=== PATIENT | female | born 1950 | race Asian ===

== ENCOUNTER → 2017-10-03 | Outpatient (REF) | payer OTHER ==
[~2017-10-03] MED LIST: ASPI81TA85 PO; LISINOP/HCTZ
[2017-10-03 16:18] LABS: ALBUMIN 3.9 GM/DL (3.2-5.2); ALBUMIN/GLOBULIN RATIO 0.93 (1.00-1.93); ALKALINE PHOSPHATASE 98 U/L (45-117); ALT/SGPT 20 U/L (12-78); ANION GAP 6 MEQ/L (8-16); AST/SGOT 11 U/L (7-37); BILIRUBIN,TOTAL 0.7 MG/DL (0.2-1.0); BLOOD UREA NITROGEN 13 MG/DL (7-18); CALCIUM LEVEL 9.1 MG/DL (8.8-10.2); CARBON DIOXIDE LEVEL 32 MEQ/L (21-32); CHLORIDE LEVEL 105 MEQ/L (98-107); CHOLESTEROL LEVEL 201 MG/DL (<200); CREATININE FOR GFR 0.71 MG/DL (0.55-1.02); GLOMERULAR FILTRATION RATE > 60.0 (>45); GLUCOSE, FASTING 79 MG/DL (80-110); POTASSIUM SERUM 4.1 MEQ/L (3.5-5.1); SODIUM LEVEL 143 MEQ/L (136-145); TOTAL PROTEIN 8.1 GM/DL (6.4-8.2); TRIGLYCERIDES LEVEL 136 MG/DL (<150)
== END ==
LOC: M SFHCPLAZ 11:27
PROVIDERS: ATTEND Nurse Practitioner Family
DX: I10 Essential (primary) hypertension (principal); E55.9 Vitamin D deficiency, unspecified

== ENCOUNTER 2017-10-09 10:44 | Emergency (ER) | payer OTHER ==
[~2017-10-09] VITALS: Ht 149.9 cm; Wt 77.3 kg
[2017-10-09 10:44] VITALS: BP 141/79
[2017-10-09] MEDS ORDERED: ASPI81TA85 PO (10:53)
[2017-10-09] MEDS ORDERED: LISINOP/HCTZ (10:53)
--- NOTE | 2017-10-09 19:26 | ECGEPIP ---
Stationary ECG Study [facility] - ED Test Date: 2017-10-09 Pat Name: STANLYE JAMES Department: Room: - Gender: F Eye Physician: virginie : 1950 Requested By: Tremayne Edgar Order Number: [id number] Reading MD: Diana Monk Measurements Intervals [place] Rate: 77 P: 40 IA: 178 QRS: 5 QRSD: 81 T: 72 QT: 386 QTc: 439 Interpretive Statements SINUS RHYTHM WITH FREQUENT VENTRICULAR PREMATURE COMPLEXES MODERATE T-WAVE ABNORMALITY, CONSIDER ISCHEMIA NO PRIOR FOR COMPARISON Electronically Signed On 10-09-2017 19:26:10 EST by Diana Monk
== END 2017-10-09 13:52 | disposition home or self-care (01) ==
LOC: M ED 10:44
DX: T46.4X5A Adverse effect of angiotensin-converting-enzyme inhibitors, initial encounter (principal); Y92.9 Unspecified place or not applicable; Y93.9 Activity, unspecified; R94.31 Abnormal electrocardiogram [ECG] [EKG]; I10 Essential (primary) hypertension; Z79.82 Long term (current) use of aspirin; Z88.6 Allergy status to analgesic agent

== ENCOUNTER → 2018-02-12 | Outpatient (REF) | payer MEDICARE ==
[2018-02-12 11:40] LABS: ANION GAP 8 MEQ/L (8-16); BLOOD UREA NITROGEN 20 MG/DL (7-18); CARBON DIOXIDE LEVEL 26 MEQ/L (21-32); CHLORIDE LEVEL 111 MEQ/L (98-107); CREATININE FOR GFR 0.99 MG/DL (0.55-1.30); GLOMERULAR FILTRATION RATE 59.9 (>45); GLUCOSE, FASTING 111 MG/DL (70-100); POTASSIUM SERUM 4.7 MEQ/L (3.5-5.1); SODIUM LEVEL 145 MEQ/L (136-145)
[2018-02-12 11:55] LABS: TOTAL 25(OH) VITAMIN D 66.3 NG/ML (30.0-100.0)
== END ==
LOC: M SFHCPLAZ 08:46
DX: I10 Essential (primary) hypertension (principal); E55.9 Vitamin D deficiency, unspecified
CPT/HCPCS: 82306

== ENCOUNTER → 2018-03-15 | Outpatient (REF) | payer MEDICARE ==
[2018-03-17 08:06] LABS: RUBEOLA IgG ANTIBODY 76.5 AU/mL (Immune >29.9)
== END ==
LOC: M SFHCPLAZ 15:12
DX: I10 Essential (primary) hypertension (principal); Z91.89 Other specified personal risk factors, not elsewhere classified
CPT/HCPCS: 86765

== ENCOUNTER → 2018-08-14 | Outpatient (REF) | payer MEDICARE ==
[2018-08-14 12:03] LABS: ESTIMATED AVERAGE GLUCOSE 117 MG/DL (60-110); HEMOGLOBIN A1c 5.7 %
[2018-08-14 12:30] LABS: ALBUMIN 3.9 GM/DL (3.2-5.2); ALBUMIN/GLOBULIN RATIO 1.03 (1.00-1.93); ALKALINE PHOSPHATASE 78 U/L (45-117); ALT/SGPT 20 U/L (12-78); ANION GAP 9 MEQ/L (8-16); AST/SGOT 12 U/L (7-37); BILIRUBIN,TOTAL 0.5 MG/DL (0.2-1.0); BLOOD UREA NITROGEN 21 MG/DL (7-18); CALCIUM LEVEL 9.1 MG/DL (8.8-10.2); CARBON DIOXIDE LEVEL 26 MEQ/L (21-32); CHLORIDE LEVEL 106 MEQ/L (98-107); CHOLESTEROL LEVEL 209 MG/DL (<200); CHOLESTEROL RISK RATIO 4.543 (<5); CREATININE FOR GFR 0.94 MG/DL (0.55-1.30); GLOMERULAR FILTRATION RATE > 60.0 (>45); GLUCOSE, FASTING 98 MG/DL (70-100); HDL CHOLESTEROL 46 MG/DL (>40); LDL CHOLESTEROL 118 MG/DL (<100); NON-HDL-C 163 MG/DL; SODIUM LEVEL 141 MEQ/L (136-145); TOTAL 25(OH) VITAMIN D 40.9 NG/ML (30.0-100.0); TOTAL PROTEIN 7.7 GM/DL (6.4-8.2); TRIGLYCERIDES LEVEL 227 MG/DL (<150)
== END ==
LOC: M SFHCPLAZ 08:56
DX: I10 Essential (primary) hypertension (principal); R73.01 Impaired fasting glucose; E78.00 Pure hypercholesterolemia, unspecified; E55.9 Vitamin D deficiency, unspecified; Z79.899 Other long term (current) drug therapy
CPT/HCPCS: 80053

== ENCOUNTER → 2018-09-04 | Outpatient (CLI) | payer MEDICARE | LOC: M WHC 08:19 | DX: R92.8 Other abnormal and inconclusive findings on diagnostic imaging of breast (principal) | CPT/HCPCS: 77067 ==

== ENCOUNTER → 2018-09-10 | Outpatient (CLI) | payer MEDICARE | LOC: M RAD 12:40 | DX: R92.0 Mammographic microcalcification found on diagnostic imaging of breast (principal) | CPT/HCPCS: 77065 ==

== ENCOUNTER → 2018-12-21 | Outpatient (REF) | payer MEDICARE ==
[2018-12-21 12:15] LABS: BILIRUBIN,TOTAL 0.6 MG/DL (0.2-1.0); CALCIUM LEVEL 9.1 MG/DL (8.8-10.2); CHOLESTEROL RISK RATIO 2.745 (<5); CREATININE FOR GFR 1.1 MG/DL (0.55-1.30); GLOMERULAR FILTRATION RATE 52.9 (>45); POTASSIUM SERUM 4.3 MEQ/L (3.5-5.1); TOTAL PROTEIN 7.9 GM/DL (6.4-8.2)
== END ==
LOC: M SFHCPLAZ 08:44
PROVIDERS: ATTEND Nurse Practitioner Family
DX: E78.00 Pure hypercholesterolemia, unspecified (principal)

== ENCOUNTER → 2018-12-21 | Outpatient (REF) | payer MEDICARE | LOC: CANPREREF → M LABDRAWP 08:49 | PROVIDERS: ATTEND Nurse Practitioner Family | DX: Z53.9 Procedure and treatment not carried out, unspecified reason (principal) ==

== ENCOUNTER 2019-01-25 09:34 | Outpatient (RCR) | payer MEDICARE | END 2019-01-27 | LOC: M PT 09:34 | PROVIDERS: ATTEND Nurse Practitioner Family | DX: Z51.89 Encounter for other specified aftercare (principal); M25.512 Pain in left shoulder ==

== ENCOUNTER 2019-01-31 07:52 | Outpatient (RCR) | payer MEDICARE | END 2019-02-26 | LOC: M PT 07:52 | PROVIDERS: ATTEND Nurse Practitioner Family | DX: M25.512 Pain in left shoulder (principal) ==

== ENCOUNTER → 2019-04-12 | Outpatient (CLI) | payer MEDICARE ==
--- NOTE | 2019-04-12 11:52 | REP ---
DIGITAL DIAGNOSTIC UNILATERAL RIGHT BREAST MAMMOGRAPHY WITH CAD: HISTORY: 6-month followup for microcalcifications. Comparison mammography from September 10, 2018 was BIRADS category 4 suspicious breast imaging for microcalcifications. Stereotactic needle biopsy had been recommended. Comparison is also made with September 04, 2018, May 31, 2016, and July 22, 2014 prior mammography. MAMMOGRAPHIC FINDINGS: Today's magnified focal spot compression CC, true ML, and MLO views of the right breast demonstrate the previously described microcalcific grouping unchanged in the 7-month interval since the September 10, 2018 prior images. This lack of progression over 7 months does not rule out malignancy. The calcifications have progressed since 2016 and are new when compared to the 2013 prior study. No new mammographic opacity is seen. No architectural distortion or mass lesion is seen. IMPRESSION: BIRADS 4: BI-RADS/ACR category 4 mammogram. Suspicious Abnormality - biopsy should be considered. Previously noted tight grouping of microcalcifications in the inferior right breast at approximately 6-o'clock is unchanged over the 7-month interval from the most recent prior mammogram. There is progression since more remote prior mammography. BIRADS category is still felt to be best assigned as category 4 suspicious breast imaging. This mammogram was interpreted with the aid of an FDA-approved computer-aided detection system. The patient states that she/he has not had a clinical breast exam in over a year. August 2018 The patient letter being requested is M4 This patient's estimated Tyrer-Cuzick lifetime risk assessment for the breast cancer is 6.0 %. Electronically Signed by Torrey Trent MD 04/12/2019 03:09 P
== END ==
LOC: M RAD 10:05
PROVIDERS: ATTEND Surgery
DX: R92.0 Mammographic microcalcification found on diagnostic imaging of breast (principal)

== ENCOUNTER → 2019-06-20 | Outpatient (REF) | payer MEDICARE ==
[2019-06-20 10:27] LABS: ALBUMIN 3.9 GM/DL (3.2-5.2); BILIRUBIN,TOTAL 0.6 MG/DL (0.2-1.0); CALCIUM LEVEL 9.8 MG/DL (8.8-10.2); CHOLESTEROL RISK RATIO 2.8 (<5); CREATININE FOR GFR 1.08 MG/DL (0.55-1.30); FREE T4 1.53 NG/DL (0.76-1.46); POTASSIUM SERUM 4.5 MEQ/L (3.5-5.1); THYROID STIMULATING HORMONE 1.48 uIU/ML (0.358-3.740); TOTAL PROTEIN 7.7 GM/DL (6.4-8.2)
[2019-06-20 10:46] LABS: HEMOGLOBIN A1c 6.4 %
[2019-06-20 12:20] LABS: TOTAL 25(OH) VITAMIN D 42.6 NG/ML (30.0-100.0)
== END ==
LOC: M SFHCPLAZ 07:56
PROVIDERS: ATTEND Nurse Practitioner Family
DX: E78.00 Pure hypercholesterolemia, unspecified (principal); R73.01 Impaired fasting glucose; E55.9 Vitamin D deficiency, unspecified; Z79.82 Long term (current) use of aspirin

== ENCOUNTER → 2019-11-18 | Outpatient (CLI) | payer MEDICARE ==
--- NOTE | 2019-11-18 15:49 | REPMRS ---
Patient History The patient states she had a clinical breast exam in February 2019.No known family history of cancer. Digital Woman Screen Mammo: November 18, 2019 - Exam #: [id number] Bilateral CC and MLO view(s) were taken. Technologist: Melany Donahue, Technologist Prior study comparison: April 12, 2019, right breast digital mammo diagnostic unilateral, performed at [facility]. September 04, 2018, bilateral digital woman screen mammo performed at [facility]. May 31, 2016, digital woman screen mammo performed at [facility]. July 22, 2014, digital woman screen mammo performed at [facility]. FINDINGS: There are scattered fibroglandular densities. The previously described grouping of microcalcifications in the inferior medial aspect of the right breast is again seen unchanged from most recent prior study of September 10, 2018 and April 12, 2019. These have been previously described as suspicious and merit diagnostic mammography with magnified focal spot images for further evaluation. There has been no other change in the appearance of the mammogram from the prior studies. There is a mild amount of scattered fibroglandular density which is fairly symmetric. There is no interval development of dominant mass, architectural distortion, or grouped microcalcification suggestive of malignancy. 3-D tomosynthesis shows no additional findings. Assessment: BI-RADS/ACR category 0 mammogram, Incomplete: Need additional imaging evaluation and/or prior mammograms for comparison. Recommendation Special view mammogram of the right breast. This patient's Lifetime Breast Cancer Risk is estimated at 5.7 %. This mammogram was interpreted with the aid of an FDA-approved computer-aided dectection system. Electronically Signed By: Taqueria Trent MD 11/18/19 [id number]
== END ==
LOC: M WHC 11:29
PROVIDERS: ATTEND Nurse Practitioner Family
DX: Z12.31 Encounter for screening mammogram for malignant neoplasm of breast (principal)

== ENCOUNTER → 2019-11-26 | Outpatient (CLI) | payer MEDICARE ==
--- NOTE | 2019-11-26 09:44 | REP ---
DIAGNOSTIC MAMMOGRAM RIGHT BREAST: Magnification views right breast performed in the MLO, ML and CC projections and correlated with several prior exams. Once again, there is a cluster of multiple pleomorphic microcalcifications in the 6-o'clock region of the right breast. There are at least two new microcalcifications when compared to prior diagnostic study of 09/10/2018. Again the findings are suspicious and I would recommend stereotactic biopsy. IMPRESSION: BIRADS 4: BI-RADS/ACR category 4 mammogram. Suspicious Abnormality - biopsy should be considered. ACR 4 suspicious. Multiple pleomorphic clustered microcalcifications at 6-o'clock right breast. There are at least two new microcalcifications seen in this cluster compared to the initial diagnostic images of 09/10/2018. Stereotactic biopsy is recommended. Patient letter requested is M4. Electronically Signed by Iker Pak MD 11/27/2019 01:26 P
== END ==
LOC: M RAD 08:49
PROVIDERS: ATTEND Nurse Practitioner Family
DX: R92.2 Inconclusive mammogram (principal)

== ENCOUNTER → 2019-12-03 | Outpatient (CLI) | payer MEDICARE ==
--- NOTE | 2019-12-03 17:19 | REP ---
Focused right breast sonography: History: Right breast mass at 3 o'clock, 1 cm from the nipple. Calcification of right breast. Comparison mammography November 26, 2019. Sonographic findings: Right breast is scanned at approximately 3 o'clock in the area of the palpable lump. Heterogeneous fibroglandular background echotexture is seen sonographically. No cyst or mass is observed. No acoustic shadowing or architectural distortion is seen. Impression: BIRADS category 1 negative focused right breast sonographic findings.
== END ==
LOC: M WHC 12:42
PROVIDERS: ATTEND Surgery
DX: R92.1 Mammographic calcification found on diagnostic imaging of breast (principal)

== ENCOUNTER → 2019-12-11 | Outpatient (CLI) | payer MEDICARE ==
[~2019-12-11] MED LIST changes: +AMLO25TA PO; +ATOR1TAB19 PO; +METO1TAB7 PO; +VITA200028 PO
[2019-12-11 16:12] VITALS: BP 114/62
--- NOTE | 2019-12-11 18:12 | ROOPDOC ---
[facility] Report Of Operation Report of Operation DATE OF PROCEDURE: 12/11/19 PREPROCEDURE DIAGNOSES: right breast suspicious calcifications POSTPROCEDURE DIAGNOSES: Right breast suspicious calcifications PROCEDURE: Stereotactic biopsy of the right breast suspicious calcifications and clip placement SURGEON: Arianna Luz D.O. UPSTAIRS MAID: ANESTHESIA: Local anesthetic 6 mL ESTIMATED BLOOD LOSS: Approximately [1 mL. COMPLICATIONS: None REMARKS: Postbiopsy clip seen in the good location on post procedure mammogram of the right breast. Suspicious calcifications are no longer seen on mammogram of the right breast postprocedure. DESCRIPTION OF PROCEDURE: Lidocaine 1% LOT [id number] Expiration 02/2023 Sodium Bicarbonate 8.4% LOT [id number] Expiration 06/2021 Hydromark clip LOT [id number] Expiration September 2021 REF [id number] t[place]au m shaped 1 (closed Spring) Bx device: Stereotactic Mammotome Revolve Dual Vacuum- assisted Biopsy System 10 G LOT [id number] Expiration September 2022 REF [id number] Informed consent was obtained in the preop area. The most common risk and possible complications including bleeding, hematoma, bruising, infection, injury to surrounding structures were explained to the patient and she expressed understanding. Patient was taken to the procedure room and placed prone on the [facility] Biopsy table with the right breast hanging through the table aperture. Right breast was placed into Cranio-Caudal compression with the planned inferior approach for the biopsy. Engineering Psychologist arsalan images were taken. Suspicious calcifications were identified on the arsalan images and target was set. At this time, since we were able to confirm visibility of the suspicious calcifications and patient tolerated prone positioning allowing to proceed with the biopsy, appropriate time out was done stating patients name, date of , and the procedure to be performed. The right breast in CC compression was prepped in the usual fashion. Plain Lidocaine 1% and 8.4% sodium bicarbonate 10:1 mix was used to numb the skin, the biopsy site and tissues along the anticipated biopsy tract. Small skin incision was made with blade number 11. Mammotome 10 G stereotactic breast biopsy device was inserted through the incision and advanced to the previously set coordinates marking the target lesion. Pre-fire imaging was taken to assure appropriate positioning. At this time, Mammotome 10 G breast biopsy device was fired and seven vacuum assisted biopsies were collected. The biopsy samples were investigated with [employer] system and calcifications were observed. Those images were captured and sent to PACS. Biopsy samples were then placed in the formaldehyde, marked with patients name and right breast biopsy site, and sent to pathology for evaluation. Hydromark clip was placed into the Mammotome biopsy device channel and deployed. Post-deployment imaging was done to assure appropriate clip deployment. Clip was noted in the right breast. At this point, paddle CC compression of the right breast was released and manual pressure was held to decrease harmonic effect and to assure hemostasis. No bleeding was noted upon removal of the pressure. Patient was slowly repositioned and placed into sitting position, and then assisted off the table. Post-biopsy mammogram of the right breast was obtained and showed clip in expected position. Postprocedural dressing was placed. Patient tolerated procedure well and was taken to the recovery unit in stable condition. Discharge instructions were discussed with the patient and she expressed understanding. ARIANNA LUZ DO Dec 11, 2019 18:11
--- NOTE | 2019-12-12 08:30 | REP ---
Digital diagnostic unilateral right breast mammography with CAD: Two views: History: Clip placement mammogram. The patient status post ectatic needle biopsy for microcalcifications. Comparison mammography November 26, 2019. Findings: Mediolateral oblique and craniocaudad views of the right breast demonstrate the needle biopsy marker clip in good position. The previously noted micro calcific grouping has been removed. Impression: Marker clip in good position. Microcalcifications no longer visible. Electronically Signed by Torrey Trent MD 12/12/2019 10:13 A
--- NOTE | 2019-12-12 09:04 | REP ---
Specimen radiography right breast: Single view. History: Stereotactic needle biopsy for microcalcifications. Comparison mammography November 26, 2019. Findings: Specimen radiography demonstrates microcalcifications from the target cluster in two of the removed specimens.
== END ==
LOC: M WHCPRO 13:35
PROVIDERS: ATTEND Surgery
DX: N64.1 Fat necrosis of breast (principal)

== ENCOUNTER → 2020-03-27 | Outpatient (REF) | payer MEDICARE ==
[2020-03-27 17:47] LABS: CREATININE FOR GFR 1.25 MG/DL (0.55-1.30); GLOMERULAR FILTRATION RATE 45.5 (>45); POTASSIUM SERUM 5.1 MEQ/L (3.5-5.1); URIC ACID 8.1 MG/DL (2.6-6.0)
[2020-03-27 18:12] LABS: MALB URINE SIEMENS 18.2 MG/L; MAU/CREAT RATIO 6.3 MCG/MG (0.0-30.0)
[2020-03-27 18:31] LABS: HEMOGLOBIN A1c 6.1 %
== END ==
LOC: M SFHCPLAZ 14:07
PROVIDERS: ATTEND Nurse Practitioner Family
DX: R73.03 Prediabetes (principal); I10 Essential (primary) hypertension; M10.9 Gout, unspecified

== ENCOUNTER → 2020-04-14 | Outpatient (REF) | payer MEDICARE ==
[2020-04-14 12:53] LABS: CALCIUM LEVEL 8.9 MG/DL (8.8-10.2); CREATININE FOR GFR 1.21 MG/DL (0.55-1.30); GLOMERULAR FILTRATION RATE 47.2 (>45); POTASSIUM SERUM 4.7 MEQ/L (3.5-5.1)
== END ==
LOC: M SFHCPLAZ 09:15
PROVIDERS: ATTEND Nurse Practitioner Family
DX: N18.3 Chronic kidney disease, stage 3 (moderate) (principal)
CPT/HCPCS: 36415; 80048; G0463

== ENCOUNTER 2020-06-18 13:07 | Emergency (ER) | payer MEDICARE ==
[~2020-06-18] VITALS: Ht 149.9 cm; Wt 66.1 kg
[~2020-06-18 13:07] MED LIST changes: -ASPI81TA85 PO; +ASPI81TA86 PO
[2020-06-18] MEDS ORDERED: SIMETHICONE 80 MG CHEW TAB PO STA (14:08)
[2020-06-18 14:21] LABS: BASO % 0.3 % (0.0-1.0); EOS # 0.1 10^3/uL (0.0-0.5); EOS % 0.9 % (0.0-3.0); HEMATOCRIT 42.3 % (36.0-47.0); HEMOGLOBIN 14.4 g/dl (12.0-15.5); LYMPH # 2.2 10^3/uL (1.5-5.0); LYMPH % 21.8 % (24.0-44.0); MEAN CORPUSCULAR HEMOGLOBIN 31.2 pg (27.0-33.0); MEAN CORPUSCULAR VOLUME 91.8 fl (80.0-96.0); MONO # 0.5 10^3/uL (0.0-0.8); MONO % 5.2 % (0.0-5.0); NEUTROPHILS # 7.2 10^3/uL (1.5-8.5); NEUTROPHILS % 71.4 % (36.0-66.0); PLATELET COUNT, AUTOMATED 323 10^3/uL (150-450); RED BLOOD COUNT 4.61 10^6/uL (4.00-5.40)
[2020-06-18 14:47] LABS: ALBUMIN 4.2 GM/DL (3.2-5.2); ALT/SGPT 19 U/L (12-78); BILIRUBIN,DIRECT 0.2 MG/DL (0.0-0.2); BILIRUBIN,TOTAL 0.4 MG/DL (0.2-1.0); BLOOD UREA NITROGEN 19 MG/DL (7-18); CALCIUM LEVEL 9.5 MG/DL (8.8-10.2); CARBON DIOXIDE LEVEL 28 MEQ/L (21-32); CHLORIDE LEVEL 103 MEQ/L (98-107); CK-MB VALUE MASS < 1.0 NG/ML (<3.6); CPK CREATINE PHOSPHOKINASE 94 U/L (26-192); CREATININE FOR GFR 1.67 MG/DL (0.55-1.30); GLOMERULAR FILTRATION RATE 32.6 (>45); GLUCOSE, FASTING 99 MG/DL (70-100); LIPASE 352 U/L (73-393); MB/CK RELATIVE INDEX 1.06 (< OR =4); SODIUM LEVEL 136 MEQ/L (136-145); TOTAL PROTEIN 7.9 GM/DL (6.4-8.2); TROPONIN I < 0.02 NG/ML (< 0.10)
[2020-06-18] MEDS ORDERED: COLA100C5 PO (15:41)
[2020-06-18] MEDS ORDERED: SIME40TA PO (15:42)
[2020-06-18 15:53] VITALS: BP 122/75
--- NOTE | 2020-07-08 14:23 | ECGEPIP ---
[facility] - ED Test Date: 2020-06-18 Pat Name: STANLEY JAMES Department: Room: - Gender: Female Manager Community Development: yuval : 1950 Requested By: Diana Monk Order Number: [id number] Reading MD: Diana Monk Measurements Intervals [place] Rate: 61 P: 29 MD: 171 QRS: 12 QRSD: 85 T: 12 QT: 397 QTc: 403 Interpretive Statements SINUS RHYTHM NONSPECIFIC T-WAVE ABNORMALITY BORDERLINE ECG SEE SCANNED DOWNTIME REPORT
== END 2020-06-18 16:05 | disposition home or self-care (01) ==
LOC: M ED 13:07
DX: K59.00 Constipation, unspecified (principal); R14.0 Abdominal distension (gaseous); R79.89 Other specified abnormal findings of blood chemistry; I10 Essential (primary) hypertension; E78.5 Hyperlipidemia, unspecified; R51 Headache; Z88.6 Allergy status to analgesic agent; Z88.8 Allergy status to other drugs, medicaments and biological substances; Z79.899 Other long term (current) drug therapy; Z79.82 Long term (current) use of aspirin

== ENCOUNTER → 2020-06-25 | Outpatient (CLI) | payer MEDICARE ==
[~2020-06-25] MED LIST changes: +COLA100C5 PO; +SIME40TA PO
[2020-06-25 12:10] LABS: CREATININE FOR GFR 1.08 MG/DL (0.55-1.30); GLOMERULAR FILTRATION RATE 53.9 (>45)
== END ==
LOC: M LAB 07:11
PROVIDERS: ATTEND Physician Assistant
DX: K59.00 Constipation, unspecified (principal); R14.0 Abdominal distension (gaseous)

== ENCOUNTER → 2020-06-30 | Outpatient (CLI) | payer MEDICARE ==
[2020-06-30 14:05] LABS: CREATININE FOR GFR 1.08 MG/DL (0.55-1.30); GLOMERULAR FILTRATION RATE 53.9 (>45); POTASSIUM SERUM 5.2 MEQ/L (3.5-5.1)
[2020-06-30 14:06] LABS: ALBUMIN 4.2 GM/DL (3.2-5.2); BILIRUBIN,TOTAL 0.6 MG/DL (0.2-1.0); CALCIUM LEVEL 9.7 MG/DL (8.8-10.2); CHOLESTEROL RISK RATIO 2.588 (<5); TOTAL PROTEIN 7.7 GM/DL (6.4-8.2); URIC ACID 6.6 MG/DL (2.6-6.0)
[2020-06-30 14:14] LABS: MALB URINE SIEMENS 41.8 MG/L; MAU/CREAT RATIO 26.1 MCG/MG (0.0-30.0)
[2020-06-30 15:20] LABS: HEMOGLOBIN A1c 5.7 %
== END ==
LOC: M PLALAB 07:55
PROVIDERS: ATTEND Nurse Practitioner Family
DX: I12.9 Hypertensive chronic kidney disease with stage 1 through stage 4 chronic kidney disease, or unspecified chronic kidney disease (principal); R73.03 Prediabetes; E78.00 Pure hypercholesterolemia, unspecified; E79.0 Hyperuricemia without signs of inflammatory arthritis and tophaceous disease; N18.3 Chronic kidney disease, stage 3 (moderate)

== ENCOUNTER → 2020-07-10 | Outpatient (CLI) | payer MEDICARE ==
[2020-07-10 14:55] LABS: CALCIUM LEVEL 9.3 MG/DL (8.8-10.2); CREATININE FOR GFR 1.05 MG/DL (0.55-1.30); GLOMERULAR FILTRATION RATE 55.7 (>45); POTASSIUM SERUM 4.3 MEQ/L (3.5-5.1)
== END ==
LOC: M PLALAB 12:12
PROVIDERS: ATTEND Family Medicine
DX: I10 Essential (primary) hypertension (principal)

== ENCOUNTER → 2020-11-03 | Outpatient (CLI) | payer MEDICARE ==
--- NOTE | 2020-11-03 13:03 | REPMRS ---
Patient History The patient states she had a clinical breast exam in 10/2020 No known family history of cancer. Benign stereotatic loc for ea lesion of the right breast, December 11, 2019. 3D TOMOSYNTHESIS WAS PERFORMED. The Uday Hart lifetime risk for breast cancer is 5.7%. Volpara breast density b. Digital Woman Screen Mammo: November 03, 2020 - Exam #: [id number] Bilateral CC and MLO view(s) were taken. Technologist: Yisel Diaz, Technologist Prior study comparison: December 11, 2019, right breast diagnostic unilateral mammo performed at [facility]. November 26, 2019, right breast digital mammo diagnostic unilateral, performed at [facility]. FINDINGS: There are scattered fibroglandular densities. There has been no change in the appearance of the mammogram from the prior studies. There is a mild amount of residual fibroglandular tissue which is fairly symmetric. There is no interval development of dominant mass, architectural distortion, or clustered microcalcification suggestive of malignancy. Assessment: BI-RADS/ACR category 1 mammogram. Negative Mammogram. Recommendation Routine screening mammogram in 1 year (for women over age 40). This mammogram was interpreted with the aid of an FDA-approved computer-aided dectection system. Electronically Signed By: Iker Pak MD 11/03/20 [id number]
== END ==
LOC: M WHC 12:21
PROVIDERS: ATTEND Nurse Practitioner Family
DX: Z12.31 Encounter for screening mammogram for malignant neoplasm of breast (principal); Z86.018 Personal history of other benign neoplasm

== ENCOUNTER → 2020-12-31 | Outpatient (CLI) | payer MEDICARE ==
[~2020-12-31] MED LIST changes: -SIME40TA PO; +SIME80CH6 PO
[2020-12-31 08:49] LABS: BILIRUBIN,TOTAL 0.6 MG/DL (0.2-1.0); CALCIUM LEVEL 9.3 MG/DL (8.8-10.2); CHOLESTEROL RISK RATIO 3.758 (<5); CREATININE FOR GFR 1.19 MG/DL (0.55-1.30); POTASSIUM SERUM 4.5 MEQ/L (3.5-5.1); TOTAL PROTEIN 7.7 GM/DL (6.4-8.2)
[2020-12-31 11:14] LABS: TOTAL 25(OH) VITAMIN D 41.3 NG/ML (30.0-100.0)
== END ==
LOC: M LAB 07:52
PROVIDERS: ATTEND Nurse Practitioner Family
DX: E78.00 Pure hypercholesterolemia, unspecified (principal); E55.9 Vitamin D deficiency, unspecified; I10 Essential (primary) hypertension; Z79.899 Other long term (current) drug therapy

== ENCOUNTER 2021-02-14 17:33 | Emergency (ER) | payer MEDICARE ==
[~2021-02-14] VITALS: Ht 149.9 cm; Wt 61.4 kg
[2021-02-14 17:38] VITALS: BP 147/76
--- NOTE | 2021-02-14 20:04 | REPVR ---
PROCEDURE INFORMATION: Exam: CT Cervical Spine Without Contrast Exam date and time: 02/14/2021 7:27 PM Age: 70 years old Clinical indication: Pain; Cervicalgia; Additional info: Pain with radiation to the posterior of head TECHNIQUE: Imaging protocol: Computed tomography images of the cervical spine without contrast. Radiation optimization: All CT scans at this facility use at least one of these dose optimization techniques: automated exposure control; mA and/or kV adjustment per patient size (includes targeted exams where dose is matched to clinical indication); or iterative reconstruction. COMPARISON: No relevant prior studies available. FINDINGS: Bones/joints: Reversal of cervical lordosis. Discs/Spinal canal/Neural foramina: Moderate bilateral foraminal stenosis at C3, moderate to severe foraminal stenosis on the right at C4, bilateral severe foraminal stenosis at C5, bilateral mild foraminal stenosis at C6 secondary to uncinate joint hypertrophic changes. Disc osteophyte complexes at C5-C6 and C6-C7 result in varying degrees of effacement of the ventral subarachnoid space greatest at C5-C6 with minimal cord impingement. Lungs: Lung apices are normal. Soft tissues: Unremarkable. IMPRESSION: 1. Degenerative spondylosis. 2. No acute findings. Electronically signed by: Sandeep La On 02/14/2021 20:04:53 PM
[2021-02-14] MEDS ORDERED: methocarbamoL 750 MG TAB PO ONE (20:45)
[2021-02-14] MEDS ORDERED: METH-1164 PO ×3 (21:19→21:22)
== END 2021-02-14 21:44 | disposition home or self-care (01) ==
LOC: M ED 17:33
DX: M47.812 Spondylosis without myelopathy or radiculopathy, cervical region (principal); R51.9 Headache, unspecified; N18.9 Chronic kidney disease, unspecified; I10 Essential (primary) hypertension; Z88.8 Allergy status to other drugs, medicaments and biological substances

== ENCOUNTER → 2021-04-07 | Outpatient (CLI) | payer MEDICARE ==
[~2021-04-07] MED LIST changes: +METH-1164 PO
[2021-04-07 09:04] LABS: BLOOD UREA NITROGEN 8 MG/DL (7-18); CALCIUM LEVEL 9.3 MG/DL (8.8-10.2); CARBON DIOXIDE LEVEL 28 MEQ/L (21-32); CHLORIDE LEVEL 100 MEQ/L (98-107); CREATININE FOR GFR 0.93 MG/DL (0.55-1.30); GLOMERULAR FILTRATION RATE > 60.0 (>45); GLUCOSE, FASTING 90 MG/DL (70-100); POTASSIUM SERUM 5.1 MEQ/L (3.5-5.1); SODIUM LEVEL 133 MEQ/L (136-145)
[2021-04-07 09:16] LABS: CREATININE, URINE 49.5 MG/DL; MALB URINE SIEMENS < 5.0 MG/L; MAU/CREAT RATIO 10.1 MCG/MG (0.0-30.0)
[2021-04-07 10:42] LABS: HEMOGLOBIN A1c 5.3 %
== END ==
LOC: M LAB 07:39
PROVIDERS: ATTEND Nurse Practitioner Family
DX: R73.03 Prediabetes (principal)

== ENCOUNTER → 2021-07-01 | Outpatient (CLI) | payer MEDICARE ==
[2021-07-01 10:13] LABS: BLOOD UREA NITROGEN 13 MG/DL (7-18); CALCIUM LEVEL 9.2 MG/DL (8.8-10.2); CARBON DIOXIDE LEVEL 28 MEQ/L (21-32); CHLORIDE LEVEL 110 MEQ/L (98-107); CREATININE FOR GFR 0.98 MG/DL (0.55-1.30); GLOMERULAR FILTRATION RATE > 60.0 (>45); GLUCOSE, FASTING 77 MG/DL (70-100); POTASSIUM SERUM 4.5 MEQ/L (3.5-5.1); SODIUM LEVEL 143 MEQ/L (136-145)
[2021-07-01 10:24] LABS: TOTAL 25(OH) VITAMIN D 31.7 NG/ML (30.0-100.0)
[2021-07-01 10:31] LABS: HEMOGLOBIN A1c 5.4 %
== END ==
LOC: M LAB 08:21
PROVIDERS: ATTEND Nurse Practitioner Family
DX: I10 Essential (primary) hypertension (principal); Z79.899 Other long term (current) drug therapy

== ENCOUNTER → 2021-09-11 | Outpatient (CLI) | payer SELFPAY | LOC: M LABSMTC 09:10 | PROVIDERS: ATTEND Pediatrics | DX: Z20.822 Contact with and (suspected) exposure to COVID-19 (principal) ==

== ENCOUNTER → 2022-02-18 | Outpatient (CLI) | payer MEDICARE ==
[2022-02-18 09:01] LABS: BILIRUBIN,TOTAL 0.6 MG/DL (0.2-1.0); CALCIUM LEVEL 9.6 MG/DL (8.8-10.2); CHOLESTEROL RISK RATIO 2.885 (<5); CREATININE FOR GFR 1.06 MG/DL (0.55-1.30); GLOMERULAR FILTRATION RATE 54.7 (>45); POTASSIUM SERUM 4.2 MEQ/L (3.5-5.1); TOTAL PROTEIN 7.5 GM/DL (6.4-8.2)
== END ==
LOC: M LAB 07:55
PROVIDERS: ATTEND Family Medicine
DX: E78.2 Mixed hyperlipidemia (principal); I10 Essential (primary) hypertension

== ENCOUNTER → 2022-03-10 | Outpatient (CLI) | payer MEDICARE | LOC: M WHC 10:20 | PROVIDERS: ATTEND Physician Assistant | DX: Z12.31 Encounter for screening mammogram for malignant neoplasm of breast (principal) ==

== ENCOUNTER → 2022-09-06 | Outpatient (REF) | payer MEDICARE ==
[2022-09-06 14:20] LABS: BASO % 0.4 % (0.0-1.0); EOS # 0.1 10^3/uL (0.0-0.5); HEMATOCRIT 40.9 % (36.0-47.0); HEMOGLOBIN 13.3 g/dl (12.0-15.5); MEAN CORPUSCULAR HEMOGLOBIN 31.5 pg (27.0-33.0); MEAN CORPUSCULAR HGB CONC 32.5 g/dl (32.0-36.5); MEAN CORPUSCULAR VOLUME 96.9 fl (80.0-96.0); MONO # 0.5 10^3/uL (0.0-0.8); MONO % 6.7 % (2.0-8.0); NEUTROPHILS # 4.1 10^3/uL (1.5-8.5); NEUTROPHILS % 61.6 % (36.0-66.0); PLATELET COUNT, AUTOMATED 318 10^3/uL (150-450); RED BLOOD COUNT 4.22 10^6/uL (4.00-5.40); WHITE BLOOD COUNT 6.7 10^3/uL (4.0-10.0)
[2022-09-06 14:59] LABS: ALBUMIN 3.8 GM/DL (3.2-5.2); BILIRUBIN,TOTAL 0.6 MG/DL (0.2-1.0); CALCIUM LEVEL 9.5 MG/DL (8.8-10.2); CHOLESTEROL RISK RATIO 2.887 (<5); GLOMERULAR FILTRATION RATE 58.5 (>45); POTASSIUM SERUM 4.6 MEQ/L (3.5-5.1); THYROID STIMULATING HORMONE 1.2 uIU/ML (0.358-3.740); TOTAL PROTEIN 7.2 GM/DL (6.4-8.2)
[2022-09-06 19:25] LABS: HEMOGLOBIN A1c 5.4 %
== END ==
LOC: M PLALAB 12:56
PROVIDERS: ATTEND Physician Assistant
DX: R73.03 Prediabetes (principal); I10 Essential (primary) hypertension

== ENCOUNTER 2022-09-30 15:21 | Emergency (ER) | payer MEDICARE ==
[~2022-09-30] VITALS: Ht 152.4 cm; Wt 58.2 kg
[2022-09-30] MEDS ORDERED: AMLO1TAB24 (15:46)
[2022-09-30 16:07] LABS: BASO % 0.4 % (0.0-1.0); EOS # 0.1 10^3/uL (0.0-0.5); EOS % 1.3 % (0.0-3.0); HEMATOCRIT 39.4 % (36.0-47.0); LYMPH # 2.3 10^3/uL (1.5-5.0); LYMPH % 34.6 % (24.0-44.0); MEAN CORPUSCULAR HEMOGLOBIN 31.3 pg (27.0-33.0); MEAN CORPUSCULAR VOLUME 94.9 fl (80.0-96.0); MONO # 0.4 10^3/uL (0.0-0.8); MONO % 5.4 % (2.0-8.0); NEUTROPHILS # 3.9 10^3/uL (1.5-8.5); NEUTROPHILS % 58.2 % (36.0-66.0); PLATELET COUNT, AUTOMATED 306 10^3/uL (150-450); RED BLOOD COUNT 4.15 10^6/uL (4.00-5.40); WHITE BLOOD COUNT 6.7 10^3/uL (4.0-10.0)
[2022-09-30 17:14] LABS: CK-MB VALUE MASS < 1.0 NG/ML (<3.6); LIPASE 85 U/L (12-53); THYROID STIMULATING HORMONE 1.051 uIU/ML (0.55-4.78)
[2022-09-30 17:16] LABS: BILIRUBIN,DIRECT 0.1 MG/DL (<0.4)
[2022-09-30 17:20] LABS: ALBUMIN 3.9 G/DL (3.2-5.2); ALKALINE PHOSPHATASE 85 U/L (46-116); ALT/SGPT 10 U/L (7.0-40); AST/SGOT 14 U/L (<34); BILIRUBIN,TOTAL 0.3 MG/DL (0.3-1.2); BLOOD UREA NITROGEN 16 MG/DL (9-23); CALCIUM LEVEL 8.6 MG/DL (8.3-10.6); CARBON DIOXIDE LEVEL 26 MMOL/L (20-31); CHLORIDE LEVEL 102 MMOL/L (98-107); CREATININE FOR GFR 1.06 MG/DL (0.55-1.30); GLOMERULAR FILTRATION RATE 54.7 (>45); GLUCOSE, FASTING 109 MG/DL (74-106); POTASSIUM SERUM 4.5 MMOL/L (3.5-5.1); SODIUM LEVEL 138 MMOL/L (136-145); TOTAL PROTEIN 7.1 G/DL (5.7-8.2)
[2022-09-30 17:25] LABS: FREE T4 1.81 NG/DL (0.89-1.76)
[2022-09-30 17:30] LABS: CPK CREATINE PHOSPHOKINASE 65 U/L (34-145); MB/CK RELATIVE INDEX 1.53 (< OR =4)
[2022-09-30 17:45] VITALS: O2SAT 100
[2022-09-30 18:40] LABS: CK-MB VALUE MASS < 1.0 NG/ML (<3.6)
[2022-09-30 18:42] LABS: CPK CREATINE PHOSPHOKINASE 65 U/L (34-145); MB/CK RELATIVE INDEX 1.53 (< OR =4)
[2022-09-30 19:04] VITALS: BP 130/65
== END 2022-09-30 19:12 | disposition home or self-care (01) ==
LOC: EDBD 15:21 → M ED 15:21
DX: R07.9 Chest pain, unspecified (principal); I10 Essential (primary) hypertension; Z88.8 Allergy status to other drugs, medicaments and biological substances; Z88.6 Allergy status to analgesic agent; Z79.82 Long term (current) use of aspirin; Z79.899 Other long term (current) drug therapy

== ENCOUNTER → 2022-11-07 | Outpatient (CLI) | payer MEDICARE ==
[~2022-11-07] MED LIST changes: +AMLO1TAB24 PO; +CALC-218 PO; +ECOT81TA5 PO
== END ==
LOC: M LABSMTC 09:48
PROVIDERS: ATTEND Anesthesiology
DX: Z01.812 Encounter for preprocedural laboratory examination (principal); Z20.822 Contact with and (suspected) exposure to COVID-19

== ENCOUNTER 2022-11-10 11:51 | Day surgery (SDC) | payer MEDICARE ==
[~2022-11-10] VITALS: Ht 149.9 cm; Wt 56.2 kg
[~2022-11-10 11:51] MED LIST changes: +NS 1,000 ML IV ONE
[2022-11-10] MEDS ORDERED: propofoL 200 MG/20 ML VIAL As Ordered ONE (12:58)
[2022-11-10] MEDS ORDERED: LIDOCAINE 2% 100MG/5ML SDV (FOR ANES.) As Ordered ONE (12:58)
[2022-11-10 13:30] VITALS: BP 103/58
== END 2022-11-10 17:00 | disposition home or self-care (01) ==
LOC: M OPP 11:51
PROVIDERS: ATTEND Surgery
DX: Z12.11 Encounter for screening for malignant neoplasm of colon (principal); I12.9 Hypertensive chronic kidney disease with stage 1 through stage 4 chronic kidney disease, or unspecified chronic kidney disease; N18.30 Chronic kidney disease, stage 3 unspecified; Z88.6 Allergy status to analgesic agent; Z88.8 Allergy status to other drugs, medicaments and biological substances; Z91.040 Latex allergy status; Z79.82 Long term (current) use of aspirin; Z79.899 Other long term (current) drug therapy

== ENCOUNTER → 2023-03-07 | Outpatient (CLI) | payer MEDICARE ==
[~2023-03-07] MED LIST changes: -NS 1,000 ML IV ONE
[2023-03-07 14:16] LABS: BASO % 0.3 % (0.0-1.0); EOS # 0.1 10^3/uL (0.0-0.5); EOS % 1.6 % (0.0-3.0); HEMATOCRIT 39.1 % (36.0-47.0); HEMOGLOBIN 13.1 g/dl (12.0-15.5); LYMPH # 1.4 10^3/uL (1.5-5.0); LYMPH % 22.2 % (24.0-44.0); MEAN CORPUSCULAR HEMOGLOBIN 31.8 pg (27.0-33.0); MEAN CORPUSCULAR HGB CONC 33.5 g/dl (32.0-36.5); MEAN CORPUSCULAR VOLUME 94.9 fl (80.0-96.0); MONO # 0.4 10^3/uL (0.0-0.8); MONO % 6.1 % (2.0-8.0); NEUTROPHILS # 4.2 10^3/uL (1.5-8.5); NEUTROPHILS % 69.6 % (36.0-66.0); PLATELET COUNT, AUTOMATED 303 10^3/uL (150-450); RED BLOOD COUNT 4.12 10^6/uL (4.00-5.40); WHITE BLOOD COUNT 6.1 10^3/uL (4.0-10.0)
[2023-03-07 14:35] LABS: HEMOGLOBIN A1c 5.4 % (4.0-6.0)
[2023-03-07 14:47] LABS: ALBUMIN 3.6 G/DL (3.2-5.2); ALKALINE PHOSPHATASE 84 U/L (46-116); ALT/SGPT 13 U/L (7.0-40); AST/SGOT 13 U/L (<34); BILIRUBIN,TOTAL 0.5 MG/DL (0.3-1.2); BLOOD UREA NITROGEN 12 MG/DL (9-23); CALCIUM LEVEL 8.4 MG/DL (8.3-10.6); CARBON DIOXIDE LEVEL 30 MMOL/L (20-31); CHLORIDE LEVEL 105 MMOL/L (98-107); CHOLESTEROL LEVEL 160 MG/DL (<200); CHOLESTEROL RISK RATIO 2.49 (<5); CREATININE FOR GFR 0.97 MG/DL (0.55-1.30); GLOMERULAR FILTRATION RATE > 60.0 (>39); GLUCOSE, FASTING 124 MG/DL (74-106); HDL CHOLESTEROL 64.2 MG/DL (>40); LDL CHOLESTEROL 78.2 MG/DL (<100); NON-HDL-C 95.8 MG/DL; SODIUM LEVEL 140 MMOL/L (136-145); TOTAL PROTEIN 6.6 G/DL (5.7-8.2); TRIGLYCERIDES LEVEL 88 MG/DL (<150)
== END ==
LOC: M PLALAB 11:10
PROVIDERS: ATTEND Physician Assistant
DX: R73.03 Prediabetes (principal); N18.31 Chronic kidney disease, stage 3a

== ENCOUNTER → 2023-03-13 | Outpatient (CLI) | payer MEDICARE | LOC: M WHC 09:13 | PROVIDERS: ATTEND Physician Assistant | DX: Z12.31 Encounter for screening mammogram for malignant neoplasm of breast (principal) ==

== ENCOUNTER → 2023-03-29 | Outpatient (RCR) | payer MEDICARE | LOC: M PT 09:34 | PROVIDERS: ATTEND Physician Assistant | DX: M25.562 Pain in left knee (principal); M25.561 Pain in right knee; M54.2 Cervicalgia ==

== ENCOUNTER 2023-04-19 10:24 | Outpatient (RCR) | payer MEDICARE | END 2023-04-28 | LOC: M PT 10:24 | PROVIDERS: ATTEND Physician Assistant | DX: M25.562 Pain in left knee (principal); M25.561 Pain in right knee; M54.2 Cervicalgia ==

== ENCOUNTER → 2023-05-15 | Outpatient (CLI) | payer MEDICARE ==
[2023-05-15 08:21] LABS: ALBUMIN 3.7 G/DL (3.2-5.2); CREATININE FOR GFR 1.11 MG/DL (0.55-1.30); GLOMERULAR FILTRATION RATE 51.7 (>39); PHOSPHORUS LEVEL 3.8 MG/DL (2.4-5.1); POTASSIUM SERUM 4.6 MMOL/L (3.5-5.1)
== END ==
LOC: M LAB 07:34
PROVIDERS: ATTEND Internal Medicine Cardiovascular Disease
DX: I10 Essential (primary) hypertension (principal); I51.7 Cardiomegaly; I27.20 Pulmonary hypertension, unspecified

== ENCOUNTER → 2023-05-25 | Outpatient (CLI) | payer MEDICARE | LOC: M SLEEP HO 10:57 | PROVIDERS: ATTEND Internal Medicine Cardiovascular Disease | DX: I27.20 Pulmonary hypertension, unspecified (principal) ==

== ENCOUNTER → 2023-06-27 | Outpatient (CLI) | payer MEDICARE | LOC: M RAD 08:19 | PROVIDERS: ATTEND Student in an Organized Health Care Education/Training Program | DX: M79.674 Pain in right toe(s) (principal) ==

== ENCOUNTER → 2023-09-11 | Outpatient (REF) | payer MEDICARE | LOC: M SFHCPLAZ 15:30 | PROVIDERS: ATTEND Student in an Organized Health Care Education/Training Program | DX: Z76.89 Persons encountering health services in other specified circumstances (principal); I10 Essential (primary) hypertension; R73.03 Prediabetes; E55.9 Vitamin D deficiency, unspecified ==

== ENCOUNTER → 2023-09-12 | Outpatient (CLI) | payer MEDICARE ==
[2023-09-12 10:43] LABS: BASO % 0.6 % (0.0-1.0); EOS # 0.3 10^3/uL (0.0-0.5); EOS % 3.8 % (0.0-3.0); HEMATOCRIT 38.4 % (36.0-47.0); HEMOGLOBIN 13.1 g/dl (12.0-15.5); LYMPH # 1.4 10^3/uL (1.5-5.0); LYMPH % 19.5 % (24.0-44.0); MEAN CORPUSCULAR HEMOGLOBIN 31.9 pg (27.0-33.0); MEAN CORPUSCULAR HGB CONC 34.1 g/dl (32.0-36.5); MEAN CORPUSCULAR VOLUME 93.4 fl (80.0-96.0); MONO # 0.5 10^3/uL (0.0-0.8); NEUTROPHILS # 4.9 10^3/uL (1.5-8.5); NEUTROPHILS % 68.8 % (36.0-66.0); PLATELET COUNT, AUTOMATED 367 10^3/uL (150-450); RED BLOOD COUNT 4.11 10^6/uL (4.00-5.40); WHITE BLOOD COUNT 7.1 10^3/uL (4.0-10.0)
[2023-09-12 11:05] LABS: ALBUMIN 3.9 G/DL (3.2-5.2); BILIRUBIN,TOTAL 0.6 MG/DL (0.3-1.2); CALCIUM LEVEL 9.2 MG/DL (8.3-10.6); CHOLESTEROL RISK RATIO 2.55 (<5); CREATININE FOR GFR 1.01 MG/DL (0.55-1.30); GLOMERULAR FILTRATION RATE 57.7 (>39); HDL CHOLESTEROL 69.4 MG/DL (>40); LDL CHOLESTEROL 95.2 MG/DL (<100); NON-HDL-C 107.6 MG/DL; POTASSIUM SERUM 4.9 MMOL/L (3.5-5.1); TOTAL PROTEIN 7.1 G/DL (5.7-8.2)
[2023-09-12 11:06] LABS: TOTAL 25(OH) VITAMIN D 36.5 NG/ML (20.0-100.0)
[2023-09-12 11:14] LABS: HEMOGLOBIN A1c 5.3 % (4.0-6.0)
== END ==
LOC: M PLALAB 08:38
PROVIDERS: ATTEND Student in an Organized Health Care Education/Training Program
DX: I10 Essential (primary) hypertension (principal); R73.03 Prediabetes; E55.9 Vitamin D deficiency, unspecified; Z76.89 Persons encountering health services in other specified circumstances; Z79.899 Other long term (current) drug therapy

== ENCOUNTER → 2023-09-12 | Outpatient (CLI) | payer MEDICARE ==
[2023-09-12 10:42] LABS: MEAN CORPUSCULAR HEMOGLOBIN 31.9 pg (27.0-33.0); MEAN CORPUSCULAR HGB CONC 34.2 g/dl (32.0-36.5); MEAN CORPUSCULAR VOLUME 93.4 fl (80.0-96.0); PLATELET COUNT, AUTOMATED 352 10^3/uL (150-450); RED BLOOD COUNT 4.07 10^6/uL (4.00-5.40); WHITE BLOOD COUNT 7.3 10^3/uL (4.0-10.0)
== END ==
LOC: M PLALAB 08:41
PROVIDERS: ATTEND Student in an Organized Health Care Education/Training Program
DX: M79.674 Pain in right toe(s) (principal)

== ENCOUNTER → 2023-12-11 | Outpatient (CLI) | payer MEDICARE | LOC: M PLAIMG 15:07 | PROVIDERS: ATTEND Student in an Organized Health Care Education/Training Program | DX: M99.71 Connective tissue and disc stenosis of intervertebral foramina of cervical region (principal); M47.892 Other spondylosis, cervical region ==

== ENCOUNTER → 2024-02-21 | Outpatient (REF) | payer MEDICARE | LOC: M SFHCPLAZ 15:46 | PROVIDERS: ATTEND Student in an Organized Health Care Education/Training Program | DX: Z00.00 Encounter for general adult medical examination without abnormal findings (principal); E61.2 Magnesium deficiency; E55.9 Vitamin D deficiency, unspecified ==

== ENCOUNTER → 2024-02-23 | Outpatient (CLI) | payer MEDICARE ==
[2024-02-23 09:11] LABS: BASO % 0.3 % (0.0-1.0); EOS # 0.1 10^3/uL (0.0-0.5); EOS % 1.2 % (0.0-3.0); HEMOGLOBIN 13.9 g/dl (12.0-15.5); LYMPH # 1.2 10^3/uL (1.5-5.0); LYMPH % 20.1 % (24.0-44.0); MEAN CORPUSCULAR HEMOGLOBIN 31.9 pg (27.0-33.0); MEAN CORPUSCULAR HGB CONC 33.9 g/dl (32.0-36.5); MONO # 0.4 10^3/uL (0.0-0.8); MONO % 7.3 % (2.0-8.0); NEUTROPHILS # 4.2 10^3/uL (1.5-8.5); NEUTROPHILS % 70.9 % (36.0-66.0); PLATELET COUNT, AUTOMATED 267 10^3/uL (150-450); RED BLOOD COUNT 4.36 10^6/uL (4.00-5.40); WHITE BLOOD COUNT 5.9 10^3/uL (4.0-10.0)
[2024-02-23 09:32] LABS: ALBUMIN 3.8 G/DL (3.2-5.2); CALCIUM LEVEL 9.4 MG/DL (8.3-10.6); CHOLESTEROL RISK RATIO 2.98 (<5); CREATININE FOR GFR 1.14 MG/DL (0.55-1.30); HDL CHOLESTEROL 65.9 MG/DL (>40); LDL CHOLESTEROL 113.1 MG/DL (<100); NON-HDL-C 131.1 MG/DL; POTASSIUM SERUM 4.5 MMOL/L (3.5-5.1); TOTAL PROTEIN 7.1 G/DL (5.7-8.2)
[2024-02-23 09:39] LABS: CREATININE, URINE 140.3 MG/DL; MAU/CREAT RATIO 4.2 MCG/MG (0.0-30.0)
== END ==
LOC: M LAB 08:08
PROVIDERS: ATTEND Student in an Organized Health Care Education/Training Program
DX: Z00.00 Encounter for general adult medical examination without abnormal findings (principal); E78.00 Pure hypercholesterolemia, unspecified

== ENCOUNTER → 2024-03-08 | Outpatient (CLI) | payer MEDICARE | LOC: M WHC 10:05 | PROVIDERS: ATTEND Student in an Organized Health Care Education/Training Program | DX: Z12.31 Encounter for screening mammogram for malignant neoplasm of breast (principal) ==

== ENCOUNTER → 2024-09-23 | Outpatient (CLI) | payer MEDICARE ==
[2024-09-23 09:03] LABS: BLOOD UREA NITROGEN 11 MG/DL (9-23); CALCIUM LEVEL 9.6 MG/DL (8.3-10.6); CARBON DIOXIDE LEVEL 30 MMOL/L (20-31); CHLORIDE LEVEL 106 MMOL/L (98-107); CHOLESTEROL LEVEL 175 MG/DL (<200); CHOLESTEROL RISK RATIO 2.98 (<5); CREATININE FOR GFR 0.97 MG/DL (0.55-1.30); GLOMERULAR FILTRATION RATE > 60.0 (>39); GLUCOSE, FASTING 92 MG/DL (74-106); HDL CHOLESTEROL 58.6 MG/DL (>40); LDL CHOLESTEROL 101.6 MG/DL (<100); NON-HDL-C 116.4 MG/DL; POTASSIUM SERUM 4.5 MMOL/L (3.5-5.1); SODIUM LEVEL 142 MMOL/L (136-145); TRIGLYCERIDES LEVEL 74 MG/DL (<150)
== END ==
LOC: M LAB 08:04
PROVIDERS: ATTEND Registered Nurse
DX: I10 Essential (primary) hypertension (principal); E78.2 Mixed hyperlipidemia

== ENCOUNTER → 2025-06-24 | Outpatient (CLI) | payer MEDICARE | LOC: M PLAIMG 10:35 | PROVIDERS: ATTEND Registered Nurse | DX: I08.1 Rheumatic disorders of both mitral and tricuspid valves (principal) ==

== ENCOUNTER → 2025-09-23 | Outpatient (CLI) | payer MEDICARE | LOC: M WHC 08:58 | PROVIDERS: ATTEND Family Medicine | DX: Z53.9 Procedure and treatment not carried out, unspecified reason (principal) ==

== ENCOUNTER → 2025-09-24 | Outpatient (CLI) | payer MEDICARE ==
[2025-09-24 08:09] LABS: PLATELET COUNT, AUTOMATED 324 10^3/uL (150-450)
[2025-09-24 08:31] LABS: ALT/SGPT 14.0 U/L (7.0-40); AST/SGOT 14.0 U/L (<34); CALCIUM LEVEL 8.8 MG/DL (8.3-10.6); CARBON DIOXIDE LEVEL 29.0 MMOL/L (20-31); CHLORIDE LEVEL 108.0 MMOL/L (98-107); CHOLESTEROL LEVEL 193.0 MG/DL (<200); CHOLESTEROL RISK RATIO 3.17 (<5); CREATININE FOR GFR 1.02 MG/DL (0.55-1.30); GLOMERULAR FILTRATION RATE 58.5 (>39); LDL CHOLESTEROL 115.6 MG/DL (<100); NON-HDL-C 132.2 MG/DL; POTASSIUM SERUM 4.6 MMOL/L (3.5-5.1); SODIUM LEVEL 144.0 MMOL/L (136-145); TRIGLYCERIDES LEVEL 83.0 MG/DL (<150)
[2025-09-24 08:35] LABS: TOTAL 25(OH) VITAMIN D 28.7 NG/ML (20.0-100.0)
[2025-09-24 08:36] LABS: FREE T4 1.95 NG/DL (0.89-1.76)
== END ==
LOC: M LAB 07:22
PROVIDERS: ATTEND Family Medicine
DX: I10 Essential (primary) hypertension (principal); Z13.29 Encounter for screening for other suspected endocrine disorder; E55.9 Vitamin D deficiency, unspecified

== ENCOUNTER → 2025-10-06 | Outpatient (CLI) | payer MEDICARE | LOC: M WHC 08:55 | PROVIDERS: ATTEND Family Medicine | DX: Z12.31 Encounter for screening mammogram for malignant neoplasm of breast (principal) ==